=== PATIENT | male | born 1935 | race Caucasian/White ===

== ENCOUNTER 2019-09-30 10:26 | Inpatient (IN) | payer MEDICARE ==
[~2019-09-30] VITALS: Ht 182.9 cm; Wt 70.6 kg
[2019-09-30] MEDS ORDERED: methylPREDNISolone SOD SUCC 125 MG/2 ML ONE (10:37)
[2019-09-30] MEDS ORDERED: ALBU8.5H8 INH (10:53)
[2019-09-30] MEDS ORDERED: ASPI-496 PO (10:53)
[2019-09-30] MEDS ORDERED: MAGNESIUM SULFATE PMX 2GM/50ML 50 ML ONE (10:57)
[2019-09-30] MEDS ORDERED: ALBUTEROL/IPRATROPIUM 2.5MG/0.5MG, 3 ML NPPB ONE (11:00)
[2019-09-30] MEDS ORDERED: MAGNESIUM SULFATE PMX 2GM/50ML 50 ML IV ONE (11:00)
[2019-09-30] MEDS ORDERED: SODIUM CHLORIDE 0.9% 1,000ML IVBOLUS ONE (11:00)
[2019-09-30] MEDS ORDERED: methylPREDNISolone SOD SUCC 125 MG/2 ML IV ONE (11:00)
--- NOTE | 2019-09-30 11:07 | NUR ---
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
[2019-09-30 11:11] LABS: BASOPHILS # (AUTO) 0.04 x10^3/uL (0-0.1); BASOPHILS % (AUTO) 0 % (0-1); EOSINOPHILS # (AUTO) 0.06 x10^3/uL (0-0.4); EOSINOPHILS % (AUTO) 0 % (1-7); LYMPHOCYTES % (AUTO) 11 % (22-44); MD NO; MEAN CORPUSCULAR HGB CONC 32.8 g/dL (33.2-36.2); MEAN CORPUSCULAR VOLUME 100.8 fL (81-97); MEAN PLATELET VOLUME 6.6 fL (7.4-10.4); MONOCYTES # (AUTO) 0.88 x10^3/uL (0.2-0.8); MONOCYTES % (AUTO) 6 % (2-9); NEUTROPHILS # (AUTO) 13.28 x10^3/uL (1.8-6.8); NEUTROPHILS % (AUTO) 83 % (42-75); PLATELET COUNT 232 x10^3/uL (130-400); RED CELL DISTRIBUTION WIDTH 13.3 % (9.4-14.8)
--- NOTE | 2019-09-30 11:15 | NUR ---
CXR RESULTED, LABS DRAWN, PT UPRIGHT ON GURNEY AWAKE & MILDLY ANXIOUS, CONTINUES TO C/O "FEEL LIKE I'M NOT GETTING ANY AIR", VSS STABLE WITH BIPAP IN PLACE, DR FENTON AWARE OF PT STATUS, AT BS, COMFORT MEASURES PROVIDED.
[2019-09-30 11:20] LABS: O2 FLOW 18 L/min
[2019-09-30 11:22] LABS: ALBUMIN 3.8 g/dL (3.4-5.0); ANION GAP 9 mmol/L (5-15); CALCIUM 8.3 mg/dL (8.5-10.1); CHLORIDE 105 mmol/L (98-107); CREATININE 0.89 mg/dL (0.7-1.3)
--- NOTE | 2019-09-30 11:24 | NUR ---
PT C/O LT CHEST PAIN- DR FENTON NOTIFIED, REPEAT EKG DONE.
[2019-09-30 11:26] LABS: TROPONIN I < 0.015 ng/mL (0.000-0.045)
--- NOTE | 2019-09-30 11:39 | NUR ---
PT KEEPS TAKING BIPAP OFF ("I HAVE TO SPIT", "THE AIR IS TOO HOT"), DR FENTON AWARE, RT CALLED TO TRIAL PT OFF OF BIPAP. RT AT .
[2019-09-30] MEDS ORDERED: LORazepam 2 MG/ML, 1ML ONE ×2 (11:41→22:00)
--- NOTE | 2019-09-30 11:50 | NUR ---
PT DID NOT TOLERATE NC AFTER SEEN BY RT, ATIVAN GIVEN PER EMAR, RT CALLED AGAIN FOR ADDT'L TX PER DR FENTON REQUEST.
[2019-09-30] MEDS ORDERED: LORazepam 2 MG/ML, 1ML IVPush ONE ×2 (12:00→22:30)
--- NOTE | 2019-09-30 12:02 | NUR ---
RT AT BS FOR TX & CPAP PLACEMENT, DR FENTON AWARE.
--- NOTE | 2019-09-30 12:49 | NUR ---
BREAK RN: DR RAMOS AT BEDSIDE. SBAR RPT REVIEWED. DR RAMOS REVIEWED POC AND POSSIBILITY OF INTUBATION WITH AND PT.
--- NOTE | 2019-09-30 13:02 | NUR ---
BREAK RN: PT TOLLERATING CHANGE IN IPAP FROM 12 TO 14. PT APPEARS TO BE RESTING WITH EYES CLOSED, RR 30 SP02 MAINTAINING AT 99-100%
--- NOTE | 2019-09-30 13:32 | NUR ---
Pt to be admitted to ICU, room 103-8. Report called to Tom.
[2019-09-30] MEDS: methylPREDNISolone SOD SUCC 125 MG/2 ML IVPush SCH ×2 (14:24→19:57)
[2019-09-30] MEDS ORDERED: ONDANSETRON 2MG/ML, 2ML IVPush PRN (15:00)
[2019-09-30] MEDS ORDERED: BISACODYL 10 MG SUPP PR PRN (15:00)
[2019-09-30] MEDS ORDERED: OXYcodone IR 5MG TABLET PO PRN (15:00)
[2019-09-30] MEDS ORDERED: POLYETHYLENE GLYCOL 17 GM PACKET PO PRN (15:00)
[2019-09-30] MEDS ORDERED: ACETAMINOPHEN 325 MG TABLET PO PRN (15:00)
[2019-09-30] MEDS: SODIUM CHLORIDE 0.9% 1,000 ML IV SCH (15:32)
[2019-09-30] MEDS: DOXYCYCLINE 100 MG in DEXTROSE 5% 250 ML IV SCH (16:01)
[2019-09-30] MEDS: ENOXAPARIN 40 MG/0.4 ML SQ SCH (16:02)
[2019-09-30 16:07] VITALS: BP 124/73
[2019-09-30 19:24] LABS: TROPONIN I < 0.015 ng/mL (0.000-0.045)
[2019-09-30] MEDS: FAMOTIDINE 20 MG TABLET PO SCH (20:50)
[2019-09-30] MEDS: BUDESONIDE 0.5 MG/2 ML INHA INH SCH (21:40)
[2019-10-01 01:23] LABS: TROPONIN I 0.017 ng/mL (0.000-0.045)
[2019-10-01] MEDS: methylPREDNISolone SOD SUCC 125 MG/2 ML IVPush SCH ×4 (01:32→19:52)
[2019-10-01 04:00] VITALS: BP 112/57
[2019-10-01] MEDS: DOXYCYCLINE 100 MG in DEXTROSE 5% 250 ML IV SCH ×2 (04:15→16:20)
[2019-10-01 04:46] LABS: BASOPHILS % (AUTO) 0 % (0-1); EOSINOPHILS # (AUTO) 0.15 x10^3/uL (0-0.4); EOSINOPHILS % (AUTO) 1 % (1-7); LYMPHOCYTES # (AUTO) 1.02 x10^3/uL (1-3.4); LYMPHOCYTES % (AUTO) 6 % (22-44); MD NO; MEAN CORPUSCULAR HEMOGLOBIN 32.9 pg (27.5-34.5); MEAN CORPUSCULAR HGB CONC 32.7 g/dL (33.2-36.2); MEAN CORPUSCULAR VOLUME 100.5 fL (81-97); MEAN PLATELET VOLUME 7.2 fL (7.4-10.4); MONOCYTES # (AUTO) 0.18 x10^3/uL (0.2-0.8); MONOCYTES % (AUTO) 1 % (2-9); NEUTROPHILS # (AUTO) 16.02 x10^3/uL (1.8-6.8); NEUTROPHILS % (AUTO) 92 % (42-75); PLATELET COUNT 204 x10^3/uL (130-400); RED CELL DISTRIBUTION WIDTH 12.9 % (9.4-14.8)
[2019-10-01 04:51] LABS: ALANINE AMINOTRANSFERASE 16 U/L (12-78); ALBUMIN 3.1 g/dL (3.4-5.0); ANION GAP 7 mmol/L (5-15); CALCIUM 8.1 mg/dL (8.5-10.1); CHLORIDE 106 mmol/L (98-107); CREATININE 0.77 mg/dL (0.7-1.3)
[2019-10-01 04:53] LABS: ALKALINE PHOSPHATASE 69 U/L (45-117); BILIRUBIN,TOTAL 0.6 mg/dL (0.2-1.0); TOTAL PROTEIN 6.8 g/dL (6.4-8.2)
[2019-10-01] MEDS: SODIUM CHLORIDE 0.9% 1,000 ML IV SCH ×2 (05:43→19:53)
[2019-10-01] MEDS ORDERED: ASPIRIN 325 MG TABLET EC PO SCH (06:00)
[2019-10-01] MEDS: SENNA/DOCUSATE TABLET PO SCH (09:13)
[2019-10-01] MEDS: ASPIRIN 81 MG TABLET EC PO SCH (09:13)
[2019-10-01] MEDS: FAMOTIDINE 20 MG TABLET PO SCH ×2 (09:14→20:22)
[2019-10-01] MEDS: BUDESONIDE 0.5 MG/2 ML INHA INH SCH ×2 (09:42→21:00)
[2019-10-01] MEDS ORDERED: ALBUTEROL/IPRATROPIUM 2.5MG/0.5MG, 3 ML ONE (10:13)
[2019-10-01] MEDS: ENOXAPARIN 40 MG/0.4 ML SQ SCH (16:22)
[2019-10-01] MEDS ORDERED: LORazepam 2 MG/ML, 1ML ONE (21:41)
[2019-10-01] MEDS ORDERED: LORazepam 2 MG/ML, 1ML IVPush ONE (22:00)
[2019-10-02] MEDS: methylPREDNISolone SOD SUCC 125 MG/2 ML IVPush SCH ×4 (01:48→20:03)
[2019-10-02] MEDS: DOXYCYCLINE 100 MG in DEXTROSE 5% 250 ML IV SCH ×2 (04:10→16:50)
[2019-10-02 04:12] VITALS: BP 132/62
[2019-10-02 05:31] LABS: MEAN CORPUSCULAR HEMOGLOBIN 32.9 pg (27.5-34.5); MEAN CORPUSCULAR HGB CONC 32.5 g/dL (33.2-36.2); MEAN CORPUSCULAR VOLUME 101.2 fL (81-97); MEAN PLATELET VOLUME 7.3 fL (7.4-10.4); PLATELET COUNT 208 x10^3/uL (130-400); RED BLOOD COUNT 3.97 x10^6/uL (4.38-5.82); RED CELL DISTRIBUTION WIDTH 12.6 % (9.4-14.8)
[2019-10-02 05:36] LABS: ALBUMIN 3.1 g/dL (3.4-5.0); ANION GAP 6 mmol/L (5-15); BILIRUBIN, DIRECT 0.2 mg/dL (0.1-0.2); CALCIUM 8.2 mg/dL (8.5-10.1); CHLORIDE 104 mmol/L (98-107)
[2019-10-02 05:39] LABS: ALANINE AMINOTRANSFERASE 27 U/L (12-78); ALKALINE PHOSPHATASE 66 U/L (45-117); BILIRUBIN,INDIRECT 0.3 mg/dL (0.0-2.0); BILIRUBIN,TOTAL 0.5 mg/dL (0.2-1.0); TOTAL PROTEIN 6.7 g/dL (6.4-8.2)
[2019-10-02 05:49] LABS: BASOPHILS # (AUTO) 0.01 x10^3/uL (0-0.1); BASOPHILS % (AUTO) 0 % (0-1); EOSINOPHILS # (AUTO) 0.26 x10^3/uL (0-0.4); EOSINOPHILS % (AUTO) 1 % (1-7); LYMPHOCYTES # (AUTO) 0.82 x10^3/uL (1-3.4); LYMPHOCYTES % (AUTO) 4 % (22-44); MD SCAN; MONOCYTES # (AUTO) 0.39 x10^3/uL (0.2-0.8); MONOCYTES % (AUTO) 2 % (2-9); NEUTROPHILS # (AUTO) 22.16 x10^3/uL (1.8-6.8); NEUTROPHILS % (AUTO) 94 % (42-75)
[2019-10-02] MEDS: FAMOTIDINE 20 MG TABLET PO SCH ×2 (12:49→20:03)
[2019-10-02] MEDS: SENNA/DOCUSATE TABLET PO SCH (12:50)
[2019-10-02] MEDS: ASPIRIN 81 MG TABLET EC PO SCH (12:50)
[2019-10-02 14:05] VITALS: BP 153/81
[2019-10-02] MEDS: INSULIN LISPRO 100 UNITS/ML, PEN SQ-INSULIN SCH ×2 (16:00→20:04)
[2019-10-02] MEDS: ENOXAPARIN 40 MG/0.4 ML SQ SCH (16:50)
[2019-10-02 19:39] VITALS: BP 163/90
[2019-10-03 00:43] VITALS: BP 162/89
[2019-10-03] MEDS: methylPREDNISolone SOD SUCC 125 MG/2 ML IVPush SCH ×2 (02:16→08:34)
[2019-10-03] MEDS: ALBUTEROL/IPRATROPIUM 2.5MG/0.5MG, 3 ML NPPB PRN (03:19)
[2019-10-03] MEDS: DOXYCYCLINE 100 MG in DEXTROSE 5% 250 ML IV SCH ×2 (03:34→16:30)
[2019-10-03 05:54] LABS: MEAN CORPUSCULAR HEMOGLOBIN 32.9 pg (27.5-34.5); MEAN CORPUSCULAR HGB CONC 32.5 g/dL (33.2-36.2); MEAN CORPUSCULAR VOLUME 101.3 fL (81-97); MEAN PLATELET VOLUME 7.7 fL (7.4-10.4); PLATELET COUNT 213 x10^3/uL (130-400); RED CELL DISTRIBUTION WIDTH 13.5 % (9.4-14.8)
[2019-10-03 06:27] LABS: <PLATELET ESTIMATE> ADEQUATE; <PLT MORPHOLOGY> NORMAL PLT MORPH; ANISOCYTOSIS 1+; BASOPHILS # (AUTO) 0.02 x10^3/uL (0-0.1); BASOPHILS % (AUTO) 0 % (0-1); EOSINOPHILS # (AUTO) 0.13 x10^3/uL (0-0.4); EOSINOPHILS % (AUTO) 1 % (1-7); LYMPHOCYTES # (AUTO) 0.64 x10^3/uL (1-3.4); LYMPHOCYTES % (AUTO) 4 % (22-44); MD MORPH REVIEW ONLY; MONOCYTES # (AUTO) 0.28 x10^3/uL (0.2-0.8); MONOCYTES % (AUTO) 2 % (2-9); NEUTROPHILS % (AUTO) 94 % (42-75)
[2019-10-03] MEDS: CEFTRIAXONE PMX 1GM/50ML 50 ML IV SCH (06:27)
[2019-10-03] MEDS: INSULIN LISPRO 100 UNITS/ML, PEN SQ-INSULIN SCH ×4 (07:00→20:05)
[2019-10-03 07:08] VITALS: BP 138/65
[2019-10-03] MEDS: ASPIRIN 81 MG TABLET EC PO SCH (08:33)
[2019-10-03] MEDS: SENNA/DOCUSATE TABLET PO SCH (08:34)
[2019-10-03] MEDS: FAMOTIDINE 20 MG TABLET PO SCH ×2 (08:34→20:06)
[2019-10-03 13:01] VITALS: BP 131/73
[2019-10-03] MEDS: ENOXAPARIN 40 MG/0.4 ML SQ SCH (16:30)
[2019-10-03 18:19] VITALS: BP 163/75
[2019-10-04 00:49] VITALS: BP 173/95
[2019-10-04] MEDS: DOXYCYCLINE 100 MG in DEXTROSE 5% 250 ML IV SCH (04:10)
[2019-10-04 05:17] LABS: BASOPHILS # (AUTO) 0.05 x10^3/uL (0-0.1); BASOPHILS % (AUTO) 0 % (0-1); EOSINOPHILS # (AUTO) 0.11 x10^3/uL (0-0.4); EOSINOPHILS % (AUTO) 1 % (1-7); LYMPHOCYTES # (AUTO) 1.81 x10^3/uL (1-3.4); LYMPHOCYTES % (AUTO) 12 % (22-44); MD NO; MEAN CORPUSCULAR HEMOGLOBIN 32.8 pg (27.5-34.5); MEAN CORPUSCULAR HGB CONC 32.6 g/dL (33.2-36.2); MEAN CORPUSCULAR VOLUME 100.8 fL (81-97); MEAN PLATELET VOLUME 7.4 fL (7.4-10.4); MONOCYTES # (AUTO) 0.99 x10^3/uL (0.2-0.8); MONOCYTES % (AUTO) 7 % (2-9); NEUTROPHILS # (AUTO) 11.84 x10^3/uL (1.8-6.8); NEUTROPHILS % (AUTO) 80 % (42-75); PLATELET COUNT 254 x10^3/uL (130-400); RED BLOOD COUNT 4.37 x10^6/uL (4.38-5.82)
[2019-10-04] MEDS: CEFTRIAXONE PMX 1GM/50ML 50 ML IV SCH (06:34)
[2019-10-04 06:37] VITALS: BP 167/89
[2019-10-04] MEDS: SENNA/DOCUSATE TABLET PO SCH (08:11)
[2019-10-04] MEDS: ASPIRIN 81 MG TABLET EC PO SCH (08:11)
[2019-10-04] MEDS: LISINOPRIL 10 MG TABLET PO SCH ×2 (08:12→21:05)
[2019-10-04] MEDS: FAMOTIDINE 20 MG TABLET PO SCH ×2 (08:12→21:04)
[2019-10-04] MEDS: INSULIN LISPRO 100 UNITS/ML, PEN SQ-INSULIN SCH ×4 (08:13→21:00)
[2019-10-04] MEDS: ALBUTEROL/IPRATROPIUM 2.5MG/0.5MG, 3 ML NPPB PRN (09:29)
[2019-10-04] MEDS ORDERED: AMOX1TAB61 PO (10:29)
[2019-10-04] MEDS ORDERED: TIOT18CA INH (10:29)
[2019-10-04] MEDS ORDERED: PRED20TA PO (10:29)
[2019-10-04] MEDS ORDERED: FLUT1DIS IH (10:29)
[2019-10-04] MEDS ORDERED: LISI-167 PO (10:29)
[2019-10-04 13:05] VITALS: BP 115/50
[2019-10-04] MEDS: ENOXAPARIN 40 MG/0.4 ML SQ SCH (16:17)
[2019-10-04 19:20] VITALS: BP 169/77
[2019-10-04] MEDS ORDERED: DOXYCYCLINE 100MG TABLET PO SCH (21:00)
[2019-10-04 21:11] VITALS: BP_SYST 158; BP_SYST 175; BP_DIAS 92; BP_DIAS 93
== END 2019-10-04 21:16 | disposition home or self-care (01) | DRG 177 ==
LOC: ED 12:15 → EDIP 12:26 → ICU 13:53 → 5SO 10-02 13:50 → 4NE 10-03 22:44
PROVIDERS: ADMIT Internal Medicine; ATTEND Hospitalist
PROC: 5A09357 Assistance with Respiratory Ventilation, Less than 24 Consecutive Hours, Continuous Positive Airway Pressure (ICD-10-PCS; principal; 2019-09-30)
PROC: 5A09357 Assistance with Respiratory Ventilation, Less than 24 Consecutive Hours, Continuous Positive Airway Pressure (ICD-10-PCS; 2019-10-01)
PROC: 5A09357 Assistance with Respiratory Ventilation, Less than 24 Consecutive Hours, Continuous Positive Airway Pressure (ICD-10-PCS; 2019-10-02)
DX: J15.5 Pneumonia due to Escherichia coli (principal); J96.01 Acute respiratory failure with hypoxia; R65.10 Systemic inflammatory response syndrome (SIRS) of non-infectious origin without acute organ dysfunction; J13 Pneumonia due to Streptococcus pneumoniae; J14 Pneumonia due to Hemophilus influenzae; I10 Essential (primary) hypertension; I25.10 Atherosclerotic heart disease of native coronary artery without angina pectoris; J43.9 Emphysema, unspecified; B96.29 Other Escherichia coli [E. coli] as the cause of diseases classified elsewhere; Z82.3 Family history of stroke; I25.2 Old myocardial infarction; Z82.49 Family history of ischemic heart disease and other diseases of the circulatory system; Z87.891 Personal history of nicotine dependence; Z95.1 Presence of aortocoronary bypass graft; Z79.82 Long term (current) use of aspirin; Z79.51 Long term (current) use of inhaled steroids
CPT/HCPCS: 36415; 36600; 71045; 74230; 80048; 80053; 80076; 82040; 82803; 82962; 83036; 84443; 84484; 85025; 87070; 87077; 87081; 87184; 87186; 87205; 93005; 94640; 94660; 96365; 96375; G0378; J0696; J1650; J7060; J7620; J7626; J1815; J2060; J2930; J3475; J7030; J7512